=== PATIENT | female | born 1950 | race Two or more races ===

== ENCOUNTER → 2019-02-02 | Emergency (ER) | payer MEDICARE, OTHER ==
[~2019-02-02] VITALS: Ht 162.6 cm; Wt 69.4 kg
[2019-02-02 14:48] VITALS: BP 157/91
--- NOTE | 2019-02-02 15:15 | NUR ---
TWO RINGS CUT AND REMOVED FROM LEFT RING FINGER.
--- NOTE | 2019-02-02 15:56 | NUR ---
Patient discharged to home in stable condition. Written and verbal after care instructions given. Patient verbalizes understanding of instruction.
== END | disposition home or self-care (01) ==
LOC: ER 14:04
DX: S60.455A Superficial foreign body of left ring finger, initial encounter (principal); T63.441A Toxic effect of venom of bees, accidental (unintentional), initial encounter; M79.89 Other specified soft tissue disorders; Z85.828 Personal history of other malignant neoplasm of skin; Z90.89 Acquired absence of other organs; X58.XXXA Exposure to other specified factors, initial encounter; Y93.89 Activity, other specified; Y92.89 Other specified places as the place of occurrence of the external cause; Y99.8 Other external cause status